=== PATIENT | female | born 1990 | race Caucasian/White ===

== ENCOUNTER 2021-02-25 01:09 | Emergency (ER) | payer SELFPAY ==
[2021-02-25 01:23] VITALS: BP 114/96
[2021-02-25] MEDS ORDERED: LORazepam 2 MG/ML VIAL IM STA (03:22)
--- NOTE | 2021-02-25 05:45 | Emergency Department Report ---
ED Anxiety HPI - General Chief Complaint: Anxiety Stated Complaint: ANXIETY Time Seen by Provider: 02/25/21 03:21 Source: patient Mode of arrival: Ambulatory - History of Present Illness Initial Comments: 30-year-old female past medical history of anxiety [facility] emerge department complaining of feeling of restlessness and inability to sleep despite her attempting to use some [id number] medications and some of her previous prescription medicines. She reports no chest pain she reports no headache, no dizziness, no no blurred blurred visions. States that this will be going on for last few days and she is beginning to feel more anxious or presents emerged department seeking help to gain control over her ability to rest MD Complaint: anxiety -: Gradual Place: home Previous History of Same: Yes Severity: moderate Quality: worsening, similar to prior episodes Provoking factors: emotional stress Improves With: medication Worsens With: nothing Associated symptoms: denies: shortness of breath, fever/chills, headaches, malaise, seizure, syncope, weakness - Related Data Home Medications: Previous Rx's Medication Instructions Recorded Last Taken Type traMADoL [Ultram 50 MG tab] 50 mg PO Q4HR PRN #14 tablet 01/04/14 Unknown Rx traZODone [Desyrel] 50 mg PO QHS #5 tab 02/25/21 Unknown Rx Allergies/Adverse Reactions: Allergies Allergy/AdvReac Type Severity Reaction Status Date / Time No Known Allergies Allergy Unverified 01/04/14 12:25 ED Review of Systems ROS: Stated complaint: ANXIETY Other details as noted in HPI Comment: All other systems reviewed and negative ED Past Medical Hx - Past Medical History Previous Medical History?: No - Surgical History Past Surgical History?: No - Social History Smoking Status: Current Every Day Smoker - Medications Home Medications: Home Medications Medication Instructions Recorded Confirmed Last Taken Type traMADoL [Ultram 50 MG tab] 50 mg PO Q4HR PRN #14 tablet 01/04/14 Unknown Rx traZODone [Desyrel] 50 mg PO QHS #5 tab 02/25/21 Unknown Rx ED Physical Exam - General Limitations: No Limitations General appearance: alert, in no apparent distress - Head Head exam: Present: atraumatic, normocephalic - Eye Eye exam: Present: normal appearance, PERRL Pupils: Present: normal accommodation - ENT ENT exam: Present: normal exam, mucous membranes moist, TM's normal bilaterally - Neck Neck exam: Present: normal inspection, full ROM - Respiratory Respiratory exam: Present: normal lung sounds bilaterally. Absent: respiratory distress - Cardiovascular Cardiovascular Exam: Present: regular rate, normal rhythm. Absent: systolic murmur, diastolic murmur, rubs, gallop - GI/Abdominal GI/Abdominal exam: Present: soft, normal bowel sounds - Extremities Exam Extremities exam: Present: normal inspection - Back Exam Back exam: Present: normal inspection - Neurological Exam Neurological exam: Present: alert, oriented X3, CN II-XII intact, normal gait - Expanded Neurological Exam Expanded Patient oriented to: Present: person, place, time Speech: Present: fluid speech Cranial nerves: EOM's Intact: Normal Best Eye Response ([place]): (4) open spontaneously Best Motor Response ([place]): (6) obeys commands Best Verbal Response ([place]): (5) oriented [place] Total: 15 - Psychiatric Psychiatric exam: Present: normal affect, normal mood, anxious. Absent: manic, homicidal ideation, suicidal ideation - Expanded Psychiatric Exam Expanded Focused psych exam: Present: restlessness. Absent: internal stimuli, echolalia, psychomotor agitation, catatonic, mute, perseverating, euphoric - Skin Skin exam: Present: warm, dry, intact, normal color. Absent: rash ED Course Vital Signs 02/25/21 02/25/21 01:20 04:25 Temperature 98.4 F Pulse Rate 86 81 Respiratory 16 16 Rate Blood Pressure 114/96 O2 Sat by Pulse 99 100 Oximetry ED Medical Decision Making - Medical Decision Making This patient presents with symptoms consistent with acute anxiety reaction/panic attack. Low suspicion for acute coronary process including ACS, pulmonary embolism, thoracic aortic dissection. Denies any ingestions or any other medical complaints. No evidence of alcohol withdrawal symptoms. Presentation not consistent with overt toxic syndrome, ingestion given history and physical. Presentation not consistent with organic or medical emergency at this time. No acute indication for psychiatric consultation. Cautious return precautions discussed with full understanding Plan: Medication, psych follow-up PRN Critical care attestation.: If time is entered above; I have spent that time in minutes in the direct care of this critically ill patient, excluding procedure time. ED Disposition Clinical Impression: Anxiety Disposition: DC-01 TO HOME OR SELFCARE Is pt being admited?: No Does the pt Need Aspirin: No Condition: Stable Instructions: Supporting Someone With Anxiety, Managing Anxiety, Adult Prescriptions: traZODone [Desyrel] 50 mg PO QHS #5 tab Referrals: KRISTEN DE LA O NP [Staff Physician] - 3-5 Days PRIMARY CARE,MD [Primary Care Provider] - 3-5 Days KEO KELLY MD [Staff Physician] - 3-5 Days
== END 2021-02-25 04:25 | disposition home or self-care (01) ==
LOC: ED 01:09
DX: F41.9 Anxiety disorder, unspecified (principal); F17.200 Nicotine dependence, unspecified, uncomplicated; Z79.899 Other long term (current) drug therapy
CPT/HCPCS: 96372; 99282; J2060